=== PATIENT | male | born 1955 | race African-American/Black ===

== ENCOUNTER 2023-06-29 17:04 | Emergency (ER) | payer MEDICARE ==
[~2023-06-29] VITALS: Ht 175.3 cm; Wt 78.0 kg
[2023-06-29 17:22] VITALS: BP 120/66; PULSE 110; RESP 16; TEMP 98.3; O2SAT 97
== END 2023-06-29 19:00 | disposition left against medical advice (07) ==
LOC: ER 17:04
DX: S09.90XA Unspecified injury of head, initial encounter (principal); Y04.0XXA Assault by unarmed brawl or fight, initial encounter; Y93.89 Activity, other specified; Y92.89 Other specified places as the place of occurrence of the external cause; Y99.8 Other external cause status
CPT/HCPCS: 70486; 71046; 99284

== ENCOUNTER 2025-03-14 09:22 | Emergency (ER) | payer MEDICARE, MEDICAID ==
[~2025-03-14] VITALS: Ht 170.2 cm; Wt 66.0 kg
[2025-03-14 09:27] VITALS: O2SAT 100
[2025-03-14 09:37] VITALS: BP 117/64; PULSE 70; RESP 18; TEMP 36.8; O2SAT 99
[2025-03-14 10:23] LABS: BASOPHILS % 0.1 % (0.0-2.0); EOSINOPHILS % 0.3 % (0.0-5.0); HEMOGLOBIN. 14.4 g/dL (14.0-18.0); LYMPHOCYTES % 7.8 % (20.0-50.0); MEAN CORPUSCULAR HEMOGLOBIN 29.9 pg (28.0-32.0); MEAN CORPUSCULAR HGB CONC 32.6 g/dL (31.0-37.0); MEAN CORPUSCULAR VOLUME 91.7 fL (80.0-94.0); MEAN PLATELET VOLUME 8.7 fl (7.4-10.4); MONOCYTES % 5.2 % (2.0-8.0); NEUTROPHILS % 86.6 % (40.0-76.0); PLATELET 219 x1000/uL (130-400); RED CELL DISTRIBUTION WIDTH 15.2 % (11.6-14.6); WHITE BLOOD COUNT 9.2 x1000/uL (4.5-11.0)
[2025-03-14 10:34] LABS: CARBON DIOXIDE 27 mEq/L (21-32); CHLORIDE 105 mEq/L (98-107); POTASSIUM 4.5 mEq/L (3.5-5.1); SODIUM 139 mEq/L (136-145)
[2025-03-14 10:35] LABS: CALCIUM 9.4 mg/dL (8.7-10.4)
[2025-03-14 10:39] LABS: CREATININE 1.1 mg/dL (0.6-1.3); GLUCOSE 111 mg/dL (70-105)
[2025-03-14 10:40] LABS: UREA NITROGEN BLOOD 13 mg/dL (9-23)
[2025-03-14 10:41] LABS: ALANINE AMINOTRANSFERASE 13 IU/L (10-49); ALBUMIN 4.6 g/dL (3.2-4.8); ASPARTATE AMINOTRANSFERASE 19 IU/L (<34)
[2025-03-14 10:42] LABS: BILIRUBIN DIRECT 0.1 mg/dL (<=3.0); BILIRUBIN TOTAL 0.5 mg/dL (0.1-1.0); PROTEIN TOTAL 7.6 g/dL (6.0-8.3)
[2025-03-14] MEDS: KETOROLAC 30MG/ML VIAL IM ONE (11:28)
[2025-03-14] MEDS: AMOXICILLIN/POTASSIUM CLAVULANATE 875/125MG TAB PO ONE (11:29)
[2025-03-14] MEDS: ONDANSETRON 4MG ODT PO ONE (11:29)
[2025-03-14] MEDS: HYDROCODONE/ACETAMINOPHEN 5/325MG TABLET PO ONE (11:29)
[2025-03-14] MEDS ORDERED: HYDR-4001 MT (11:43)
[2025-03-14] MEDS ORDERED: AMOX1TAB16 MT (11:43)
[2025-03-14] MEDS ORDERED: ACET-2708 MT (11:43)
[2025-03-14] MEDS ORDERED: ONDA-239 PO (11:43)
[2025-03-14 11:56] LABS: CLARITY URINE CLEAR (CLEAR); COLOR URINE YELLOW (YELLOW); GLUCOSE URINE NEGATIVE (NEGATIVE); KETONES URINE 1+ (NEGATIVE); LEUKOCYTE ESTERASE URINE NEGATIVE (NEGATIVE); NITRITE URINE NEGATIVE (NEGATIVE); OCCULT BLOOD URINE NEGATIVE (NEGATIVE); PH URINE 5.5 (4.5-8.0); PROTEIN URINE NEGATIVE (NEGATIVE); SPECIFIC GRAVITY URINE 1.021 (1.005-1.030); UROBILINOGEN URINE 0.2 E.U./dL (0.2-1.0)
== END 2025-03-14 11:58 | disposition home or self-care (01) ==
LOC: ER 09:22
DX: K57.30 Diverticulosis of large intestine without perforation or abscess without bleeding (principal); Z98.890 Other specified postprocedural states; Z79.899 Other long term (current) drug therapy
CPT/HCPCS: 99285; 74176; 80076; 80048; 81003; 83690; 85025; 86850; 86900; 86901; 36415; 96372; J1885; Q0162